=== PATIENT | female | born 1980 | race Native Hawaiian/Other Pacific Islander ===

== ENCOUNTER 2018-01-19 15:09 | Outpatient (CLI) | payer OTHER | END 2018-01-19 15:13 | disposition short-term general hospital (02) | LOC: AMB 15:09 | DX: M54.2 Cervicalgia (principal); M54.5 Low back pain; J34.89 Other specified disorders of nose and nasal sinuses; R51 Headache; S80.212A Abrasion, left knee, initial encounter; V49.88XA Car occupant (driver) (passenger) injured in other specified transport accidents, initial encounter; Y92.488 Other paved roadways as the place of occurrence of the external cause | CPT/HCPCS: A0425; A0429 ==

== ENCOUNTER 2018-01-19 15:21 | Emergency (ER) | payer OTHER ==
[~2018-01-19] VITALS: Ht 152.4 cm; Wt 71.7 kg
[2018-01-19 15:35] VITALS: TEMP 98.4
[2018-01-19 15:57] LABS: PLATELET COUNT 367 K/uL (152-353)
[2018-01-19 18:10] VITALS: BP 152/87
== END 2018-01-19 18:15 | disposition home or self-care (01) ==
LOC: ED 15:21
DX: S00.83XA Contusion of other part of head, initial encounter (principal); S50.02XA Contusion of left elbow, initial encounter; S60.221A Contusion of right hand, initial encounter; S80.02XA Contusion of left knee, initial encounter; V43.52XA Car driver injured in collision with other type car in traffic accident, initial encounter; Y92.89 Other specified places as the place of occurrence of the external cause
CPT/HCPCS: 85027; 96372; 99284; J1885